=== PATIENT | male | born 1955 | race Caucasian/White ===

== ENCOUNTER → 2022-05-26 | Day surgery (SDC) | payer OTHER ==
[~2022-05-26] MED LIST: Lactated Ringers 1,000 ML IV SCH; Midazolam 1 MG/ML 2 ML SDV ONE; Propofol 200 MG/20 ML SDV ONE; fentaNYL 100 MCG/2 ML SDV ONE
== END ==
LOC: VM.SDS 06:00
PROVIDERS: ATTEND Family Medicine
DX: K29.70 Gastritis, unspecified, without bleeding (principal); K29.80 Duodenitis without bleeding; I10 Essential (primary) hypertension; E78.00 Pure hypercholesterolemia, unspecified; I25.10 Atherosclerotic heart disease of native coronary artery without angina pectoris; F32.0 Major depressive disorder, single episode, mild; G47.33 Obstructive sleep apnea (adult) (pediatric); F41.9 Anxiety disorder, unspecified; E66.9 Obesity, unspecified; N17.9 Acute kidney failure, unspecified; Z79.899 Other long term (current) drug therapy; Z79.82 Long term (current) use of aspirin; Z98.890 Other specified postprocedural states; Z87.891 Personal history of nicotine dependence; Z68.27 Body mass index [BMI] 27.0-27.9, adult
CPT/HCPCS: 00731; 88305; J2704; J3010; J7120